=== PATIENT | male | born 1995 | race African-American/Black ===

== ENCOUNTER 2017-10-30 22:21 | Emergency (ER) | payer SELFPAY ==
[2017-10-30 22:55] VITALS: BP 140/71; PULSE 70; RESP 14; TEMP 98.9; O2SAT 100
--- NOTE | 2017-10-30 23:05 | PD ---
HPI Chief Complaint: Back/ Neck Pain or Injury Time Seen by Provider: 23:04 Travel History International Travel<30 days: No Contact w/Intl Traveler<30days: No Traveled to known affect area: No History of Present Illness HPI Patient 22-year-old male presents emergency department for evaluation of low back pain. Patient states he was playing with his friends in the human [employer] and it was overinflated so he was feeling every single impact, he states he felt something in his low back after stopping and it has gradually gotten worse since yesterday. Denies any numbness and tingling in his saddle distribution, denies any difficulty urinating denies any difficulty defecating. No radiculopathy symptoms. He states the pain is moderate, low back, waxing and waning, context and associated signs and symptoms as above PFSH Past Medical History Medical History: Denies Significant Hx Past Surgical History Surgical History: No Previous Surgery Social History Alcohol Use: No Tobacco Use: No Substance Use: No Allergies-Medications (Allergen,Severity, Reaction): Coded Allergies: No Known Allergies (Unverified , 10/30/17) Reported Meds & Prescriptions Reported Meds & Active Scripts Active Flexeril (Cyclobenzaprine HCl) 10 Mg Tab 10 Mg PO TID PRN Review of Systems Except as stated in HPI: all other systems reviewed are Neg Physical Exam Narrative GENERAL: Well-nourished, well-developed patient. SKIN: Focused skin assessment warm/dry. HEAD: Normocephalic. EYES: No scleral icterus. No injection or drainage. NECK: Supple, trachea midline. No JVD or lymphadenopathy. CARDIOVASCULAR: Regular rate and rhythm without murmurs, gallops, or rubs. RESPIRATORY: Breath sounds equal bilaterally. No accessory muscle use. GASTROINTESTINAL: Abdomen soft, non-tender, nondistended. MUSCULOSKELETAL: No cyanosis, or edema. There is no midline CT or L-spine tenderness, minimal tenderness about the left thoracic area about 3-4 cm left of midline. 2+ bilateral equal pulses in all 4 extremities, pulses motor and sensory are strong in all 4 extremities BACK: Nontender without obvious deformity. No CVA tenderness. Data Data Last Documented VS Vital Signs Date Time Temp Pulse Resp B/P (MAP) Pulse Ox O2 Delivery O2 Flow Rate FiO2 10/30/17 22:55 98.9 70 14 140/71 (94) 100 Orders Orders Ed Discharge Order (10/30/17 23:16) MDM Medical Decision Making Medical Screen Exam Complete: Yes Emergency Medical Condition: Yes Differential Diagnosis Muscle strain, muscle strain, muscle spasm, fracture excluded clinically Narrative Course Patient room to the emergency department, he appears well in no obvious distress , ambulate and even narrow-base gait. Discussed symptomatic management of probable back strain follow-up with a primary care physician and return to ED criteria. No indication further workup at this time Diagnosis Primary Impression: Low back strain Qualified Codes: S39.012A - Strain of muscle, fascia and tendon of lower back , initial encounter Additional Instructions: Ibuprofen 600mg orally every 6 hours as needed for pain for 1 week. then 200mg every 6 hours as needed for pain. Med/Other Pt SpecificInfo: Prescription(s) given Scripts Cyclobenzaprine (Flexeril) 10 Mg Tab 10 MG PO TID Y for MUSCLE SPASM, #20 TAB 0 Refills Prov: Alli Mcdowell MD 10/30/17 Disposition: 01 DISCHARGE HOME Condition: Stable Alli Mcdowell MD Oct 30, 2017 23:05
[2017-10-30] MEDS ORDERED: CYCL10TA PO (23:12)
== END 2017-10-30 23:39 | disposition home or self-care (01) ==
LOC: NEPD 22:21
DX: S39.012A Strain of muscle, fascia and tendon of lower back, initial encounter (principal); X58.XXXA Exposure to other specified factors, initial encounter
CPT/HCPCS: 99283